=== PATIENT | female | born 1940 | race Caucasian/White ===

== ENCOUNTER → 2017-04-29 | Outpatient (CLI) | payer OTHER ==
[~2017-04-29] MED LIST: CALC500C70 PO; CHOL1TAB2 PO; CYAN10005 PO; DOCU-94 PO; MIRA1TAB3 PO; MIRT30TA2 PO; OXYC-57 PO; SENNTAB23 PO
== END | disposition home or self-care (01) ==
LOC: C.LABSPEC 17:09
PROVIDERS: ATTEND Urology
DX: N28.89 Other specified disorders of kidney and ureter (principal)

== ENCOUNTER 2017-05-13 05:02 | Inpatient (IN) | payer OTHER ==
[2017-05-06 12:51] VITALS: BMI 27.0
--- NOTE | 2017-05-06 13:28 | PAT Medication Instructions ---
Service Date May 06, 2017. Current Home Medication List Calcium/Vitamin D (Os-Hugo 500 Plus D), 1 TAB PO QAM Cholecalciferol (Vitamin D-3), 1 TAB PO QAM Cyanocobalamin (Vitamin B-12), 2,000 MCG PO QAM Mirabegron (Myrbetriq Er), 50 MG PO QPM Mirtazapine Soltab (Remeron Soltab), 30 MG PO QPM Oxycodone/Acetaminophen 5MG/325MG (Percocet 5MG/325MG), 1 TABLET PO Q4H PRN for Pain Sennosides-Docusate Sodium (Stool Softener), 1 TAB PO HS Medication Instructions For Your Scheduled Surgery - Hold the following medications the morning of surgery: Cholecalciferol (Vitamin D-3), 1 TAB PO QAM Cyanocobalamin (Vitamin B-12), 2,000 MCG PO QAM Calcium/Vitamin D (Os-Hugo 500 Plus D), 1 TAB PO QAM - Take the following medications the morning of surgery with a sip of water: Oxycodone/Acetaminophen 5MG/325MG (Percocet 5MG/325MG), 1 TABLET PO Q4H PRN for Pain (okay to take up to 4 hours prior to surgery if needed) - Take the following medications as scheduled the night before surgery: Sennosides-Docusate Sodium (Stool Softener), 1 TAB PO HS Mirabegron (Myrbetriq Er), 50 MG PO QPM Mirtazapine Soltab (Remeron Soltab), 30 MG PO QPM Oxycodone/Acetaminophen 5MG/325MG (Percocet 5MG/325MG), 1 TABLET PO Q4H PRN for Pain (if needed) If you have any questions please call us at [phone] or [phone] or [phone]
--- NOTE | 2017-05-06 13:55 | DIAGNOSTIC IMAGING REPORT ---
CHEST PREADMISSION(PA/LAT) CLINICAL HISTORY: Preoperative chest COMPARISON STUDY: No previous studies for comparison. FINDINGS: The heart is mildly enlarged. There is no failure. There is no lobar consolidation. Linear opacities at the left lung base are likely atelectatic. There are multiple old vertebral body compression deformities.[ IMPRESSION: Mild cardiomegaly. Left basilar atelectasis/scarring. No acute findings. Electronically signed by: Torey Tanner M.D. 05/06/2017 1:54 PM Dictated Date/Time: 05/06/2017 1:53 PM
[2017-05-06 14:49] LABS: BASO % 0.2 %; BASO ABS # 0.01 K/uL (0-0.2); EOS % 1.3 %; HEMATOCRIT 32.6 % (37-47); IG% 0.2 %; LYMPH % 22.5 %; LYMPH ABS # 1.22 K/uL (1.2-3.4); MEAN CELL VOLUME 78.6 fL (80-100); MEAN CORPUSCULAR HEMOGLOBIN 23.4 pg (25-34); MEAN CORPUSCULAR HGB CONC 29.8 g/dl (32-36); MEAN PLATELET VOLUME 9.5 fL (7.4-10.4); MONO % 9.4 %; NEUT % 66.4 %; PLATELET COUNT 508 K/uL (130-400); RED BLOOD COUNT 4.15 M/uL (4.2-5.4); WHITE BLOOD COUNT 5.43 K/uL (4.8-10.8)
[2017-05-06 15:16] LABS: ANISOCYTOSIS PRESENT; COMPLETE YES
[2017-05-06 15:54] LABS: BUN/CREATININE RATIO 22.9 (10-20); CALCIUM 8.4 mg/dl (8.5-10.1); CREATININE 0.55 mg/dl (0.60-1.20); POTASSIUM 4.3 mmol/L (3.5-5.1)
[2017-05-06 15:57] LABS: ALB/GLOB RATIO 0.5 (0.9-2)
[~2017-05-13] VITALS: Ht 152.4 cm; Wt 64.2 kg
[2017-05-13] VITALS (8 sets, daily range): BP systolic 99–168; BP diastolic 60–84; PULSE 72–94; TEMP 36.3–36.5; O2SAT 92–98; Ht 152.4 cm; Wt 64.2 kg
[~2017-05-13 05:02] MED LIST changes: -DOCU-94 PO
[2017-05-13] MEDS ORDERED: LACTATED RINGER'S 1000ML 1,000 ML IV SCH (06:00)
[2017-05-13] MEDS ORDERED: CEFAZOLIN 2000 MG/60 ML D5W IV SCH (06:00)
[2017-05-13] MEDS ORDERED: ONDANSETRON INJ 2 MG/ML 2 ML VIAL IV PRN ×2 (06:15→10:00)
[2017-05-13] MEDS ORDERED: PROMETHAZINE HCL INJ 12.5 MG in SODIUM CHLORIDE 0.9% 50ML 50 ML IV PRN (06:15)
[2017-05-13] MEDS ORDERED: ATROPINE SULFATE 0.1 MG/ML 5ML SYR IV PRN (06:15)
[2017-05-13] MEDS ORDERED: HYDROmorphone INJ 1 MG/ML SYR IV PRN ×3 (06:15→11:00)
[2017-05-13] MEDS ORDERED: FENTANYL CITRATE INJ 50 MCG/1 ML 2 ML VIAL IV PRN (06:15)
[2017-05-13] MEDS ORDERED: EpHEDrine SULFATE INJ 50 MG/ML AMP IV PRN (06:15)
[2017-05-13] MEDS ORDERED: FENTANYL CITRATE INJ 50 MCG/1 ML 2 ML VIAL ONE ×2 (06:59→10:19)
[2017-05-13] MEDS ORDERED: MIDAZOLAM HCL 1 MG/ML 2ML VIAL ONE (06:59)
[2017-05-13] MEDS ORDERED: BUPIVACAINE 0.5 % 5 MG/1 ML MPF 30ML VIAL ONE (07:02)
--- NOTE | 2017-05-13 07:19 | History & Physical Bridge Note ---
H&P Re-Evaluation Bridge Note: I have examined the patient, reviewed the History & Physical and in the interval since the performance of the History & Physical I have noted the following changes of clinical significance: No changes noted
[2017-05-13] MEDS ORDERED: NEOSTIGMINE METHYLSULFATE 5 MG/5 ML SYR ONE (08:37)
[2017-05-13] MEDS ORDERED: LARYING-O-JET KIT (LTA) ONE ×2 (08:37)
[2017-05-13] MEDS ORDERED: GLYCOPYRROLATE INJ 0.2 MG/ML VIAL ONE (08:37)
[2017-05-13] MEDS ORDERED: PROPOFOL IV EMULSION 10 MG/ML 20 ML VIAL IV ONE (08:37)
[2017-05-13] MEDS ORDERED: ONDANSETRON INJ 2 MG/ML 2 ML VIAL ONE ×2 (08:37→12:06)
[2017-05-13] MEDS ORDERED: ROCURONIUM BROMIDE 10 MG/ML 5 ML VIAL ONE (08:37)
[2017-05-13] MEDS ORDERED: DEXAMETHASONE SOD INJ 4 MG/ML VIAL ONE (08:37)
[2017-05-13] MEDS ORDERED: LIDOCAINE HCL 2% 2 ML VIAL (20MG/ML) ONE (08:37)
[2017-05-13] MEDS ORDERED: PHENYLEPHRINE 100MCG/ML 5ML SYR ONE (08:37)
[2017-05-13] MEDS ORDERED: EpHEDrine SULFATE 50MG/5ML SYR ONE (08:37)
[2017-05-13] MEDS ORDERED: TISSEEL FIBRIN SEALANT 10ML TOP ONE (09:38)
[2017-05-13] MEDS ORDERED: BACITRACIN OINT 15 GM TUBE ONE (09:53)
[2017-05-13] MEDS ORDERED: HYDROmorphone INJ 1 MG/ML SYR ONE ×2 (10:18→10:57)
--- NOTE | 2017-05-13 10:36 | [facility] Post Operative Brief Note ---
Immediate Operative Summary Operative Date May 13, 2017. Pre-Operative Diagnosis Right Renal Mass Post-Operative Diagnosis Same as preoperative Procedure(s) Performed Right Hand Assisted Laparoscopic Nephrectomy Surgeon Dr. Viktor Kingston Electroplating Technician Surgeon(s) NEGRO Christopher Estimated Blood Loss 50 ML Findings Excellent hemostasis, normal anatomy, copious intraabdominal adhesions intraabdominally and to liver Specimens A.) Right kidney and tumor Drains Zargaoza to gravity Anesthesia GAET + local Complication(s) None Disposition Recovery Room / PACU
[2017-05-13 10:38] LABS: HEMATOCRIT 32.6 % (37-47); MEAN CELL VOLUME 81.1 fL (80-100); MEAN CORPUSCULAR HEMOGLOBIN 24.4 pg (25-34); MEAN PLATELET VOLUME 9.3 fL (7.4-10.4); PLATELET COUNT 477 K/uL (130-400); RED BLOOD COUNT 4.02 M/uL (4.2-5.4); WHITE BLOOD COUNT 15.15 K/uL (4.8-10.8)
[2017-05-13] MEDS ORDERED: HYDROmorphone HCL 0.5MG/ML 50 ML CASSETTE ONE (10:38)
[2017-05-13] MEDS ORDERED: NALOXONE HCL 0.4 MG/1 ML VIAL/CARP IV PRN (10:45)
[2017-05-13 10:56] LABS: CALCIUM 8.2 mg/dl (8.5-10.1); CREATININE 0.62 mg/dl (0.60-1.20); POTASSIUM 4.4 mmol/L (3.5-5.1)
[2017-05-13 11:16] LABS: MEAN CORPUSCULAR HGB CONC 30.1 g/dl (32-36)
--- NOTE | 2017-05-13 11:18 | Anesthesiology Progress Note ---
Anesthesia Post Op Note Date & Time May 13, 2017 at 11:17 Vital Signs Pain Intensity: 5 Vital Signs Past 12 Hours Date Time Temp Pulse Resp B/P (MAP) Pulse Ox O2 Delivery O2 Flow Rate FiO2 05/13/17 11:05 77 13 162/81 96 Nasal Cannula 2 05/13/17 10:55 76 12 171/83 98 Nasal Cannula 2 05/13/17 10:45 78 10 165/89 98 Nasal Cannula 2 05/13/17 10:35 78 9 158/85 99 Mask 10 05/13/17 10:25 78 13 165/91 100 Mask 10 05/13/17 10:15 83 21 133/104 100 Mask 10 05/13/17 10:06 36.2 89 14 157/94 99 Mask 10 05/13/17 05:45 36.5 72 16 168/84 95 Room Air Notes Mental Status: alert / awake / arousable, participated in evaluation Pt Amnestic to Procedure: Yes Nausea / Vomiting: adequately controlled Pain: adequately controlled Airway Patency, RR, SpO2: stable & adequate BP & HR: stable & adequate Hydration State: stable & adequate Anesthetic Complications: no major complications apparent
[2017-05-13] MEDS ORDERED: SODIUM CHLORIDE 0.9% 1000ML 1,000 ML IV SCH (13:00)
[2017-05-13] MEDS: LACTATED RINGER'S 1000ML 1,000 ML IV SCH ×2 (13:26→21:37)
[2017-05-13] MEDS: HYDROmorphone HCL 0.5MG/ML 50 ML CASSETTE IV PRN ×2 (15:00→23:00)
--- NOTE | 2017-05-13 15:50 | [facility] Operative Report ---
Operative Report Operative Date May 13, 2017. Pre-Operative Diagnosis Right 7 cm Renal Mass Post-Operative Diagnosis Same as preoperative Procedure(s) Performed Right Hand-Assisted Laparoscopic Radical Nephrectomy Surgeon Dr. 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 CT scan of the abdomen and pelvis with a renal mass protocol confirms suspicious mass lesion. Due to the size and location of her tumor she is felt to be a poor candidate for nephron sparing surgery. Addition her left kidney is within normal limits. She is therefore here today for a radical left-sided hand-assisted laparoscopic nephrectomy to manage her disease. Please see H&P for further details. Consent reviewed preoperatively and intravenous Ancef provided for antibiotic coverage without reaction or difficulties. SCDs used for DVT prophylaxis. Description of Procedure Patient was properly identified and brought to the operative suite after defecation for appropriate consent of the chart. General anesthesia with endotracheal intubation was initiated and patient was prepped and draped in the standard fashion for this procedure that is and a gentle right side up flank position with generously padded pressure points. Axillary roll was placed and flexion was placed on the table. Arm was placed within an armboard in a neutral position. All port sites were anesthetized with local prior to incision. A Briones incision was made in the right lower quadrant and brought down through the subcutaneous tissues to the fascia of the external oblique. This was divided and an apparent epigastric artery was noted and spared throughout the case. Peritoneum was sharply entered using Metzenbaum scissors without evidence of injury to the bowel. The incision was expanded over the surgeon's finger and hand port was placed. Abdomen was insufflated to 15 mmHg and inspected. No injury to the intra-abdominal organs on access to the abdomen was appreciated. 2 12 mm ports were placed in the mid clavicular line directly onto the surgeon's hand to avoid any injury to intra-abdominal structures. Generous intra-abdominal adhesions likely due to the patient's prior gastric bypass surgery were appreciated. These also were noted to involve the liver and significantly reduce its mobility. Scissors were used to lyse adhesions between the omentum, bowel and abdominal wall. The white line of Toldt was incised on the right-hand side and the colon was dropped immediately. Psoas muscle and ureter were easily identified and used for lateral traction on the kidney and cephalad dissection to the level of the hilum. Cautious dissection around the liver to free it and allow for mobility to access the renal hilum was required. Numerous bowel adhesions at the level of the liver and prior cholecystectomy were also lysed. Great care was taken to avoid any heat injury to the bowel which was noted to be intact and normal in appearance throughout the entire case. After sufficient mobilization to allow for exposure of the hilum was performed the hilum was skeletonized to allow for identification of its structures. A compressed renal vein with no evidence of tumor thrombus was noted. This was due to close location and overlying tumor as appreciated on prior CT scan. This is able to be circumscribed and the renal hilum was taken using 2 vascular staple loads. Excellent hemostasis was appreciated at this level. Wide dissection was carried out superior to the upper pole of the kidney. Harmonic Scalpel was used as necessary for dissection and hemostasis. After the kidney was completely freed the ureter and gonadal vessels were taken using a separate staple load and specimen was delivered from the abdomen. This was handed off the table for permanent pathologic analysis. Attention was turned to the retroperitoneum where at low pressure excellent hemostasis was appreciated. Tisseel tissue sealant was applied to the level of the hilum, renal bed and the planes of dissection. Liver and bowel were returned to their normal anatomic position. Flexion was removed from the table and ports were removed. Excess carbon monoxide gas was removed from the abdomen as possible. 0 Vicryl suture on a UR 6 was used to close the 12 mm port sites. Hand port was closed in 2 layers using #1 Vicryl suture on the deep tissues of the abdominal wall and a # 1 Ethibond suture on the fascia of the external oblique and musculature. Care was taken to avoid entrapment of the patient's apparent epigastric vessel over the course of closure. Wounds were generously irrigated. 3-0 Vicryl was used in the subcutaneous tissues of the hand incision and 4-0 Monocryl at all skin incisions with Dermabond. Anesthesia was reversed and patient was transferred to the recovery room in stable condition. Zaragoza been placed at the outset of the case. Patient will be admitted to the floor for standard postoperative management. I attest to the content of the Intraoperative Record and any orders documented therein. Any exceptions are noted below.
[2017-05-13] MEDS: LOCK-OUT PCA TITRATION SCH ×2 (16:00→23:24)
--- NOTE | 2017-05-13 16:13 | [facility] Post Operative Brief Note ---
Post-OP Note Date of Service May 13, 2017. Post-Op Note PM rounds Patient resting comfortably in room with TIMBER SURVEYOR, somnolent but responsive. No OOB yet. She is ruslan sips of clears, no nausea or emesis, comfortable Labs noted - Cr and Hb stable, I expect some adjustment tomorrow NAD Good respiratory excursion S1S2 Soft, ND, min tenderness, inc c/d/i A/P 77 yo female POD#0 s/p R HALN Doing well. Clears and TIMBER SURVEYOR for now OOBTC tonight
[2017-05-13] MEDS ORDERED: ACETAMINOPHEN IV 650 MG in EMPTY BAG 0 ML IV PRN (16:15)
[2017-05-13] MEDS: CEFAZOLIN IV 2,000 MG in DEXTROSE 5% 50ML 50 ML IV SCH ×2 (16:23→23:22)
[2017-05-13] MEDS: HEPARIN SOD 5000 UNIT/0.5 ML CARP SQ SCH (18:50)
[2017-05-13] MEDS: DOCUSATE SODIUM 100 MG CAP PO SCH (20:38)
[2017-05-13] MEDS: MIRABEGRON ER 25 MG TAB PO SCH (20:39)
[2017-05-13] MEDS: BACITRACIN OINT 15 GM TUBE EXT SCH (20:40)
[2017-05-13] MEDS ORDERED: ACETAMINOPHEN 500 MG TAB PO SCH (22:00)
[2017-05-14] VITALS (10 sets, daily range): BP systolic 96–108; BP diastolic 60–71; PULSE 74–92; TEMP 36.5–36.8; O2SAT 82–99
[2017-05-14 06:00] LABS: BASO % 0.1 %; BASO ABS # 0.01 K/uL (0-0.2); EOS % 0.1 %; HEMATOCRIT 29.5 % (37-47); IG% 0.3 %; LYMPH % 9.6 %; LYMPH ABS # 0.99 K/uL (1.2-3.4); MEAN CELL VOLUME 82.9 fL (80-100); MEAN CORPUSCULAR HEMOGLOBIN 24.2 pg (25-34); MEAN CORPUSCULAR HGB CONC 29.2 g/dl (32-36); MEAN PLATELET VOLUME 9.5 fL (7.4-10.4); MONO % 8.1 %; NEUT % 81.8 %; PLATELET COUNT 476 K/uL (130-400); RED BLOOD COUNT 3.56 M/uL (4.2-5.4); WHITE BLOOD COUNT 10.27 K/uL (4.8-10.8)
[2017-05-14 06:24] LABS: ANISOCYTOSIS PRESENT; COMPLETE YES
[2017-05-14] MEDS: LACTATED RINGER'S 1000ML 1,000 ML IV SCH (06:25)
[2017-05-14 06:32] LABS: BUN/CREATININE RATIO 11.9 (10-20); CALCIUM 7.7 mg/dl (8.5-10.1); CREATININE 1.1 mg/dl (0.60-1.20); POTASSIUM 4.8 mmol/L (3.5-5.1)
--- NOTE | 2017-05-14 08:03 | Progress Note ---
Subjective Date of Service: May 14, 2017. Subjective Pt evaluation today including: conversation w/ patient, chart review, lab review Voiding: palma catheter in place (patent, draining clear, yellow urine) 77 yo female s/p right HALN. Pt reports some incisional pain this morning requiring Dilaudid SUPERINTENDENT WATER AND SEWER SYSTEMS. Denies n/v. Tolerating clear liquids. She reports she is hungry this AM. + flatus. Denies BM. She has not yet been ambulatory. Reports she uses a walker and cane at home. H&H of 8.6 and 29.5 this AM. Cr is stable at 1.10. Urine output of 125ml overnight. Review of Systems Constitutional: No fever, No chills Respiratory: No shortness of breath Cardiac: No chest pain Abdomen: + see HPI, + pain (incisional pain ), No nausea, No vomiting Female : No hematuria Heme: No abnormal bleeding/bruising Objective Vital Signs Date Time Temp Pulse Resp B/P (MAP) Pulse Ox O2 Delivery O2 Flow Rate FiO2 05/14/17 03:15 94 Nasal Cannula 2.0 05/14/17 03:07 82 Room Air 05/14/17 03:05 36.7 83 16 98/60 (73) 95 Nasal Cannula 2.0 05/13/17 23:15 Nasal Cannula 2.0 05/13/17 23:15 36.4 90 16 99/60 (73) 92 Nasal Cannula 2.0 05/13/17 19:00 36.4 94 16 103/66 (78) 95 Nasal Cannula 2.0 05/13/17 15:40 Nasal Cannula 2.0 05/13/17 15:20 36.3 89 16 100/65 (77) 95 Nasal Cannula 2.0 05/13/17 14:29 36.3 89 16 109/70 (83) 97 Nasal Cannula 2.0 05/13/17 13:31 36.3 87 16 109/66 (80) 97 Nasal Cannula 2.0 05/13/17 12:28 84 16 127/83 (98) 98 2.0 05/13/17 11:35 97 Nasal Cannula 2.0 05/13/17 11:35 97 Nasal Cannula 2.0 05/13/17 11:35 36.4 78 16 161/84 (109) 97 Nasal Cannula 2.0 05/13/17 11:25 79 16 150/79 100 Nasal Cannula 4 05/13/17 11:15 36.3 77 18 167/82 97 Nasal Cannula 4 05/13/17 11:05 77 13 162/81 96 Nasal Cannula 2 05/13/17 10:55 76 12 171/83 98 Nasal Cannula 2 05/13/17 10:45 78 10 165/89 98 Nasal Cannula 2 05/13/17 10:35 78 9 158/85 99 Mask 10 05/13/17 10:25 78 13 165/91 100 Mask 10 05/13/17 10:15 83 21 133/104 100 Mask 10 05/13/17 10:06 36.2 89 14 157/94 99 Mask 10 Physical Exam General Appearance: no apparent distress Eyes: normal inspection ENT: hearing grossly normal Neck: no JVD Respiratory/Chest: no respiratory distress, no accessory muscle use Cardiovascular: no JVD Abdomen: soft, + pertinent finding (abdominal incisions c/d/i) Extremities: normal inspection Neurologic/Psychiatric: alert, normal mood/affect, oriented x 3 Skin: normal color Laboratory Results Last 24 Hours Test 05/13/17 10:20 05/13/17 13:56 05/14/17 05:30 White Blood Count 15.15 K/uL 10.27 K/uL Red Blood Count 4.02 M/uL 3.56 M/uL Hemoglobin 9.8 g/dL 8.6 g/dL Hematocrit 32.6 % 29.5 % Mean Corpuscular Volume 81.1 fL 82.9 fL Mean Corpuscular Hemoglobin 24.4 pg 24.2 pg Mean Corpuscular Hemoglobin Concent 30.1 g/dl 29.2 g/dl RDW Standard Deviation 60.1 fL 61.3 fL RDW Coefficient of Variation 19.9 % 19.9 % Platelet Count 477 K/uL 476 K/uL Mean Platelet Volume 9.3 fL 9.5 fL Sodium Level 140 mmol/L 135 mmol/L Potassium Level 4.4 mmol/L 4.8 mmol/L Chloride Level 105 mmol/L 100 mmol/L Carbon Dioxide Level 31 mmol/L 32 mmol/L Anion Gap 4.0 mmol/L 3.0 mmol/L Blood Urea Nitrogen 9 mg/dl 13 mg/dl Creatinine 0.62 mg/dl 1.10 mg/dl Est Creatinine Clear Calc Drug Dose 63.6 ml/min 35.8 ml/min Estimated GFR () 100.8 56.1 Estimated GFR (Non- 87.0 48.4 BUN/Creatinine Ratio 15.0 11.9 Random Glucose 110 mg/dl 80 mg/dl Calcium Level 8.2 mg/dl 7.7 mg/dl Prothrombin Time 11.0 SECONDS Prothromb Time International Ratio 1.0 Neutrophils (%) (Auto) 81.8 % Lymphocytes (%) (Auto) 9.6 % Monocytes (%) (Auto) 8.1 % Eosinophils (%) (Auto) 0.1 % Basophils (%) (Auto) 0.1 % Neutrophils # (Auto) 8.40 K/uL Lymphocytes # (Auto) 0.99 K/uL Monocytes # (Auto) 0.83 K/uL Eosinophils # (Auto) 0.01 K/uL Basophils # (Auto) 0.01 K/uL Immature Granulocyte % (Auto) 0.3 % Immature Granulocyte # (Auto) 0.03 K/uL Anisocytosis PRESENT Assessment and Plan POD #1 s/p right HALN. AFVSS. Pt doing well post-op. TOV this morning. Will advance to a mechanical soft diet for breakfast. D/c Diluadid SUPERINTENDENT WATER AND SEWER SYSTEMS after lunch. Transition to oral Percocet. IV Dilaudid for breakthrough pain PRN. Will hep lock IVF after lunch if tolerating PO. PT/OT consult today. Hopeful for d/c home tomorrow if doing well. Discharge planning: home
[2017-05-14] MEDS: CEFAZOLIN IV 2,000 MG in DEXTROSE 5% 50ML 50 ML IV SCH (08:13)
[2017-05-14] MEDS: CHOLECALCIFEROL 1000 INTER.UNIT TAB PO SCH (09:13)
[2017-05-14] MEDS: DOCUSATE SODIUM 100 MG CAP PO SCH ×2 (09:13→20:45)
[2017-05-14] MEDS: BACITRACIN OINT 15 GM TUBE EXT SCH ×2 (09:13→20:45)
[2017-05-14] MEDS: CALCIUM 600MG + VIT D 400 IU TAB PO SCH (09:14)
[2017-05-14] MEDS: HEPARIN SOD 5000 UNIT/0.5 ML CARP SQ SCH ×2 (09:17→20:50)
[2017-05-14] MEDS: CYANOCOBALAMIN 500 MCG TAB (VIT B-12) PO SCH (09:17)
--- NOTE | 2017-05-14 10:51 | Anesthesiology Progress Note ---
Anesthesia Post Op Note Date & Time May 14, 2017 at 10:50 Vital Signs Pain Intensity: 5.0 Vital Signs Past 12 Hours Date Time Temp Pulse Resp B/P (MAP) Pulse Ox O2 Delivery O2 Flow Rate FiO2 05/14/17 09:37 93 Nasal Cannula 2.0 05/14/17 07:59 36.7 82 14 100/60 (73) 93 Nasal Cannula 2.0 05/14/17 07:30 Nasal Cannula 2.0 05/14/17 03:15 94 Nasal Cannula 2.0 05/14/17 03:07 82 Room Air 05/14/17 03:05 36.7 83 16 98/60 (73) 95 Nasal Cannula 2.0 05/13/17 23:15 Nasal Cannula 2.0 05/13/17 23:15 36.4 90 16 99/60 (73) 92 Nasal Cannula 2.0 Notes Mental Status: alert / awake / arousable, participated in evaluation Pt Amnestic to Procedure: Yes Nausea / Vomiting: adequately controlled Pain: adequately controlled Airway Patency, RR, SpO2: stable & adequate BP & HR: stable & adequate Hydration State: stable & adequate Anesthetic Complications: no major complications apparent
--- NOTE | 2017-05-14 12:47 | Clinical Documentation Query ---
CLINICAL DOCUMENTATION QUERY Dr. CHARLES, In your clinical opinion is this patient being managed for: ( X ) Acute kidney injury, as expected, in the setting of R nephrectomy ( ) Other explanation of clinical findings (Please Explain) ( ) Unable to determine (Please Define) ( ) Need to Discuss ( ) Not Agree Acute Kidney Injury is defined as any of the following: * Increase in SCr by (>/=) 0.3 mg/dl within 48 hours; or * Increase in SCr to (>/=)1.5 times baseline, which is known or presumed to have occurred within the prior 7 days; or * Urine volume <0.5 ml/kg/h for 6 hours. The medical record reflects the following clinical findings, treatment, and risk factors. Clinical Indicators: 77 yo female presenting with R renal mass, suspicious for RCC. Baseline Cr 0.55 which has trended up to Cr 1.10. Treatment: IV fluids, serial PRP's, I/O Risk Factors: R nephrectomy Please clarify and document your clinical opinion in the progress notes and discharge summary. Terms such as "probable", "suspected", "likely", "questionable", "possible", or "still to be ruled out" are acceptable. IF IN AGREEMENT, YOU MUST DOCUMENT ABOVE DIAGNOSTIC STATEMENT IN DAILY PROGRESS NOTES AND DISCHARGE SUMMARY. This document is not part of the patient's record. Thank You, Yesi Mancini, RN [phone]
--- NOTE | 2017-05-14 12:50 | Clinical Documentation Query ---
CLINICAL DOCUMENTATION QUERY Ms.. ARIZMENDI, In your clinical opinion is this patient being managed for: ( X ) Acute kidney injury, as expected, in the setting of R nephrectomy ( ) Other explanation of clinical findings (Please Explain) ( ) Unable to determine (Please Define) ( ) Need to Discuss ( ) Not Agree The medical record reflects the following clinical findings, treatment, and risk factors. Clinical Indicators: 77 yo female presenting with R renal mass, suspicious for RCC. Baseline Cr 0.55 which has trended up to Cr 1.10. Treatment: IV fluids, serial PRP's, I/O Risk Factors: R nephrectomy Acute Kidney Injury is defined as any of the following: o Increase in SCr by (>/=) 0.3 mg/dl within 48 hours; or o Increase in SCr to (>/=)1.5 times baseline, which is known or presumed to have occurred within the prior 7 days; or o Urine volume <0.5 ml/kg/h for 6 hours. Please clarify and document your clinical opinion in the progress notes and discharge summary. Terms such as "probable", "suspected", "likely", "questionable", "possible", or "still to be ruled out" are acceptable. IF IN AGREEMENT, YOU MUST DOCUMENT ABOVE DIAGNOSTIC STATEMENT IN DAILY PROGRESS NOTES AND DISCHARGE SUMMARY. This document is not part of the patient's record. Thank You, Yesi Mancini, RN [phone]
[2017-05-14] MEDS ORDERED: HYDROmorphone INJ 1 MG/ML SYR IV PRN (13:00)
[2017-05-14] MEDS: OXYCODONE/ACETAMINOPHEN 7.5-325 TAB PO PRN ×4 (13:58→23:15)
[2017-05-14] MEDS ORDERED: NURSING VERBAL MED ORDER ONE (15:15)
[2017-05-14] MEDS: MIRABEGRON ER 25 MG TAB PO SCH (20:45)
[2017-05-15] MEDS: OXYCODONE/ACETAMINOPHEN 7.5-325 TAB PO PRN ×3 (02:50→11:59)
[2017-05-15 06:59] LABS: BASO % 0.1 %; BASO ABS # 0.01 K/uL (0-0.2); EOS % 0.4 %; IG% 0.1 %; LYMPH % 9.9 %; LYMPH ABS # 0.74 K/uL (1.2-3.4); MEAN CELL VOLUME 81.6 fL (80-100); MEAN CORPUSCULAR HEMOGLOBIN 23.9 pg (25-34); MEAN CORPUSCULAR HGB CONC 29.3 g/dl (32-36); MEAN PLATELET VOLUME 9.5 fL (7.4-10.4); MONO % 8.3 %; NEUT % 81.2 %; PLATELET COUNT 379 K/uL (130-400); RED BLOOD COUNT 3.31 M/uL (4.2-5.4); WHITE BLOOD COUNT 7.44 K/uL (4.8-10.8)
[2017-05-15 07:32] LABS: ANISOCYTOSIS PRESENT; COMPLETE YES; HYPOCHROMIA PRESENT
[2017-05-15 07:33] LABS: BUN/CREATININE RATIO 13.4 (10-20); CALCIUM 8.1 mg/dl (8.5-10.1); CREATININE 1.1 mg/dl (0.60-1.20); POTASSIUM 4.6 mmol/L (3.5-5.1)
[2017-05-15] MEDS ORDERED: DOCU-94 PO (07:33)
--- NOTE | 2017-05-15 07:37 | Discharge Instructions ---
Discharge Instructions Date of Service May 15, 2017. Admission Reason for Admission: Right Renal Mass Discharge Discharge Diagnosis / Problem: Right renal mass Discharge Goals Goal(s): Decrease discomfort, Improve disease control, Therapeutic intervention Activity Recommendations Activity Limitations: per Instructions/Follow-up section Shower/Bathe: tomorrow 1. Do not lift >15lbs x 6 weeks. 2. No heavy exercise x 6 weeks. You may engage in light activity such as walking and stairs as tolerated. 3. Do not drive x [address] while taking narcotics. 4. Follow-up as scheduled. Please call our office at [phone] if you need to reschedule for any reason. 5. You may take the Percocet you have been previously prescribed for pain. . Current Hospital Diet Hospital Diet(s): Regular Diet Discharge Diet Recommended Diet: Regular Diet Procedures Procedures Performed: Right Hand-Assisted Laparoscopic Radical Nephrectomy Pending Studies Studies pending at discharge: yes (renal mass) List of pending studies: right renal mass Medical Emergencies . Who to Call and When: Medical Emergencies: If at any time you feel your situation is an emergency, please call 911 immediately. . Non-Emergent Contact Non-Emergency issues call your: Urologist Call Non-Emergent contact if: temperature is above 101.5, your pain is not controlled, your pain is worsening, your pain is unusual for you, your pain is concerning you, you have any medication questions . . "Provider Documentation" section prepared by Rani Patel. . VTE Core Measure Inpt VTE Proph given/why not?: Unfractionated heparin SQ, SCD's [place] Drug Monitoring Program Search Results: patient reviewed within database, see additional documentation Drug Monitoring Findings: Pt receiving 90 tablets of oxycodone-acetaminophen 10-325mg per month. Nothing further prescribed at this time.
--- NOTE | 2017-05-15 07:39 | Progress Note ---
Subjective Date of Service: May 15, 2017. Subjective Pt evaluation today including: conversation w/ patient, chart review, lab review Voiding: no voiding problems 77 yo female s/p right HALN. Pt reports some incisional pain this morning, but otherwise feels well and wishes to be discharged home. She reports some n/v yesterday after eating a lot of chicken and gravy which she thought was delicious. No n/v since, and tolerating mechanical soft diet without issue. + flatus and small BM as well. She reports she is voiding well. Denies hematuria. She has ambulated to the hallway with her walker. H&H noted to be 7.9 and 27.0 this morning. Cr is pending. Urine output has improved. 425ml overnight. Review of Systems Constitutional: No fever, No chills Respiratory: No shortness of breath Cardiac: No chest pain Abdomen: + pain (incisional), No nausea, No vomiting Female : No dysuria, No hematuria Heme: No abnormal bleeding/bruising Objective Vital Signs Date Time Temp Pulse Resp B/P (MAP) Pulse Ox O2 Delivery O2 Flow Rate FiO2 05/14/17 23:55 Nasal Cannula 3.0 05/14/17 23:05 36.8 80 16 108/71 (83) 99 Nasal Cannula 3.0 05/14/17 16:15 97 Nasal Cannula 3.0 05/14/17 15:25 36.5 74 18 98/64 (75) 97 Nasal Cannula 3.0 05/14/17 13:24 95 Nasal Cannula 2.0 05/14/17 12:00 36.8 92 14 96/62 (73) 90 Nasal Cannula 2.0 05/14/17 09:37 93 Nasal Cannula 2.0 05/14/17 07:59 36.7 82 14 100/60 (73) 93 Nasal Cannula 2.0 05/14/17 07:30 Nasal Cannula 2.0 Physical Exam General Appearance: no apparent distress Eyes: normal inspection ENT: hearing grossly normal Neck: no JVD Respiratory/Chest: no respiratory distress, no accessory muscle use Cardiovascular: no JVD Abdomen: soft, + pertinent finding (abdominal incisions c/d/i) Extremities: normal inspection Neurologic/Psychiatric: alert, normal mood/affect, oriented x 3 Skin: normal color Laboratory Results Last 24 Hours Test 05/15/17 06:22 White Blood Count 7.44 K/uL Red Blood Count 3.31 M/uL Hemoglobin 7.9 g/dL Hematocrit 27.0 % Mean Corpuscular Volume 81.6 fL Mean Corpuscular Hemoglobin 23.9 pg Mean Corpuscular Hemoglobin Concent 29.3 g/dl Platelet Count 379 K/uL Mean Platelet Volume 9.5 fL Neutrophils (%) (Auto) 81.2 % Lymphocytes (%) (Auto) 9.9 % Monocytes (%) (Auto) 8.3 % Eosinophils (%) (Auto) 0.4 % Basophils (%) (Auto) 0.1 % Neutrophils # (Auto) 6.03 K/uL Lymphocytes # (Auto) 0.74 K/uL Monocytes # (Auto) 0.62 K/uL Eosinophils # (Auto) 0.03 K/uL Basophils # (Auto) 0.01 K/uL RDW Standard Deviation 59.8 fL RDW Coefficient of Variation 19.8 % Immature Granulocyte % (Auto) 0.1 % Immature Granulocyte # (Auto) 0.01 K/uL Assessment and Plan POD #2 s/p right HALN. AFVSS. Pt doing well post-op. Will d/c home after lunch if continuing to do well. Will d/c home with [facility]. She has Percocet 10-325mg at home that she can take for pain. Will f/u with Dr. Kingston post-op as scheduled. Discharge planning: home
[2017-05-15 07:43] VITALS: BP 120/68; PULSE 72; TEMP 36.5; O2SAT 100
[2017-05-15 07:51] VITALS: O2SAT 100
[2017-05-15] MEDS: CALCIUM 600MG + VIT D 400 IU TAB PO SCH (08:55)
[2017-05-15] MEDS: DOCUSATE SODIUM 100 MG CAP PO SCH (08:57)
[2017-05-15] MEDS: CYANOCOBALAMIN 500 MCG TAB (VIT B-12) PO SCH (08:57)
[2017-05-15] MEDS: CHOLECALCIFEROL 1000 INTER.UNIT TAB PO SCH (08:59)
[2017-05-15] MEDS: BACITRACIN OINT 15 GM TUBE EXT SCH (09:01)
[2017-05-15] MEDS: HEPARIN SOD 5000 UNIT/0.5 ML CARP SQ SCH (09:14)
--- NOTE | 2017-05-15 10:53 | Medical Consult ---
Consultation Date of Consultation: May 15, 2017. Attending Physician: Viktor Kingston MD, Urology Reason for Consultation: Hypoxia History of Present Illness Ms. Chamberlain is a 77 y/o female with PMHx of Malabsorption Syndrome S/P Gastric Bypass, Hypoalbuminemia, and B/L Lower Extremity Edema 2/2 Hypoalbuminemia who is S/P R Lap Nephrectomy on 05/[address] Hoang. Hospitalist consulted for low O2 sats on RA. She denies H/O pulmonary or cardiac conditions. Smoked when "cigarettes were $1 a pack" but hasn't since. She was never diagnosed with asthma or COPD and doesn't utilize inhalers. Denies H/O sleep apnea. Denies H/O PE/DVT. She reports that she has never had an PA or CHF. Does have lower extremity edema intermittently that she states was due to her hypoalbuminemia but has not caused her any problems. She states she is not having any SOB or RIVERA. She is having some incisional pain when not taking pain medications but no pleuritic CP. She reports an intermittent cough that is non- productive and more "just clearing my throat". She is not having worsening lower extremity edema or pain in the lower legs. Vitals are stable. In the room , patient on RA was 69% with the finger probe but mentating adequately and no distress. Placed forehead monitor that was reading in 83-89% range while sitting in bedside chair. Did discuss getting a CXR which patient initially declined but did agree to at least a portable. Will also place two-step. She has never required supplemental O2. She feels at her baseline. Past Medical/Surgical History 1. Malabsorption Syndrome S/P Gastric Bypass 2. Hypoalbuminemia with Lower Extremity Edema 3. Overactive Bladder 4. Osteoarthritis Family History Ovarian Cancer MOTHER, Social History Smoking Status: Former Smoker Alcohol Use: socially Drug Use: none Allergies Coded Allergies: Penicillins (Unverified Allergy, Mild, RASH, 05/13/17) Current Inpatient Medications Current Inpatient Medications Medications (Trade) Dose Ordered Sig/Canelo Route Start Time Stop Time Status Last Admin Dose Admin Docusate Sodium (coLACE CAP) 100 mg BID PO 05/13/17 21:00 06/12/17 20:59 05/15/17 08:57 100 MG Heparin Sodium (Porcine) (Heparin Sq 5000 Unit/0.5ml) 5,000 unit Q12 SQ 05/13/17 19:00 06/12/17 18:59 05/15/17 09:14 5,000 UNIT Ondansetron HCl (Zofran Inj) 4 mg Q6H PRN IV 05/13/17 10:00 06/12/17 09:59 05/14/17 18:34 4 MG Oxycodone/ Acetaminophen (Percocet 7.5-325MG Tab) Hold Tylenol if given Q4H PRN PO 05/13/17 10:00 05/27/17 09:59 Future hold 05/15/17 07:38 2 TAB Calcium/Vitamin D (Caltrate Plus Tab) 1 tab QAM PO 05/14/17 09:00 06/13/17 08:59 05/15/17 08:55 1 TAB Cholecalciferol (Vitamin D Tab) 1,000 inter.unit QAM PO 05/14/17 09:00 06/13/17 08:59 05/15/17 08:59 1,000 INTER.UNIT Cyanocobalamin (Vitamin B-12 Tab) 2,000 mcg QAM PO 05/14/17 09:00 06/13/17 08:59 05/15/17 08:57 2,000 MCG Mirabegron (Myrbetriq Er) 50 mg QPM PO 05/13/17 21:00 06/12/17 20:59 05/14/17 20:45 50 MG Miscellaneous Information (Order Awaiting Action) 1 ea QS N/A 05/13/17 16:00 06/12/17 15:59 Bacitracin (Bacitracin Oint) 1 appln BID EXT 05/13/17 21:00 06/12/17 20:59 05/15/17 09:01 1 APPLN Acetaminophen 650 mg/Empty Bag 65 ml @ 260 mls/hr Q6H PRN IV 05/13/17 16:15 06/12/17 16:14 Hydromorphone HCl (Dilaudid Inj) 1 mg Q2H PRN IV 05/14/17 13:00 05/28/17 12:59 Review of Systems Constitutional: No fever, No chills, No fatigue ENT: No nasal symptoms, No sore throat, No trouble swallowing Respiratory: + cough, No sputum, No wheezing, No dyspnea on exertion, No dyspnea at rest, No hemoptysis Cardiovascular: No chest pain, No palpitations Abdomen: No pain, No nausea, No vomiting Musculoskeletal: + joint pain (bilateral knee) Hematologic / Lymphatic: No abnormal bleeding/bruising, No clotting problems Integumentary: No rash, No itch Physical Exam Date Time Temp Pulse Resp B/P (MAP) Pulse Ox O2 Delivery O2 Flow Rate FiO2 05/15/17 07:51 100 Nasal Cannula 3.0 05/15/17 07:43 36.5 72 16 120/68 (85) 100 Nasal Cannula 3.0 05/15/17 07:30 Nasal Cannula 2.0 05/14/17 23:55 Nasal Cannula 3.0 05/14/17 23:05 36.8 80 16 108/71 (83) 99 Nasal Cannula 3.0 05/14/17 16:15 97 Nasal Cannula 3.0 05/14/17 15:25 36.5 74 18 98/64 (75) 97 Nasal Cannula 3.0 05/14/17 13:24 95 Nasal Cannula 2.0 05/14/17 12:00 36.8 92 14 96/62 (73) 90 Nasal Cannula 2.0 General Appearance: no apparent distress, + thin Head: normocephalic, atraumatic Eyes: sclerae normal ENT: hearing grossly normal Neck: supple, no JVD, trachea midline Respiratory/Chest: no respiratory distress, no accessory muscle use, + crackles (minimal crackles in R base) Cardiovascular: regular rate, rhythm, no gallop, + systolic murmur Abdomen/GI: normal bowel sounds, non tender, soft Extremities/Musculoskelatal: no calf tenderness, no pedal edema Neurologic/Psych: alert, oriented x 3 Skin: normal color, warm/dry Laboratory Results Last 24 Hours Test 05/15/17 06:22 White Blood Count 7.44 K/uL Red Blood Count 3.31 M/uL Hemoglobin 7.9 g/dL Hematocrit 27.0 % Mean Corpuscular Volume 81.6 fL Mean Corpuscular Hemoglobin 23.9 pg Mean Corpuscular Hemoglobin Concent 29.3 g/dl Platelet Count 379 K/uL Mean Platelet Volume 9.5 fL Neutrophils (%) (Auto) 81.2 % Lymphocytes (%) (Auto) 9.9 % Monocytes (%) (Auto) 8.3 % Eosinophils (%) (Auto) 0.4 % Basophils (%) (Auto) 0.1 % Neutrophils # (Auto) 6.03 K/uL Lymphocytes # (Auto) 0.74 K/uL Monocytes # (Auto) 0.62 K/uL Eosinophils # (Auto) 0.03 K/uL Basophils # (Auto) 0.01 K/uL RDW Standard Deviation 59.8 fL RDW Coefficient of Variation 19.8 % Immature Granulocyte % (Auto) 0.1 % Immature Granulocyte # (Auto) 0.01 K/uL Hypochromasia PRESENT Anisocytosis PRESENT Sodium Level 135 mmol/L Potassium Level 4.6 mmol/L Chloride Level 103 mmol/L Carbon Dioxide Level 32 mmol/L Anion Gap 0.0 mmol/L Blood Urea Nitrogen 15 mg/dl Creatinine 1.10 mg/dl Est Creatinine Clear Calc Drug Dose 35.8 ml/min Estimated GFR () 56.1 Estimated GFR (Non- 48.4 BUN/Creatinine Ratio 13.4 Random Glucose 82 mg/dl Calcium Level 8.1 mg/dl Assessment & Plan Ms. Chamberlain is a 77 y/o female with PMHx of Malabsorption Syndrome S/P Gastric Bypass, Hypoalbuminemia, and B/L Lower Extremity Edema 2/2 Hypoalbuminemia who is S/P R Lap Nephrectomy on 05/[address] Hoang. Hospitalist consulted for low O2 sats on RA. Acute Hypoxic Respiratory Failure: Possibly Atelectasis - Patient initially did not want to do further imaging testing but is in agreement to do portable CXR - Given recent surgery and pain medications she is likely not taking deep breaths and will favor likely atelectasis -- Vitals stable - no tachycardia, no pleuritic CP, no SOB/RIVERA, and on Heparin SC - clinically unlikely PE -- No documented H/O CHF, no reports of cardiac issue per patient - no echocardiogram in the system to evaluate - minimal crackles in R base - doesn't look fluid overloaded -- No fever/chills, productive cough, or leukocytosis to support pneumonia - CXR - await to evaluate for effusion or consolidation - 2 step evaluation
--- NOTE | 2017-05-15 10:54 | DIAGNOSTIC IMAGING REPORT ---
CHEST ONE VIEW PORTABLE CLINICAL HISTORY: Hypoxia COMPARISON STUDY: Chest radiograph May 06, 2017. FINDINGS: Lung volumes are diminished. There is old deformity of the proximal left humerus. No pneumothorax or pleural effusion is identified. There is no evidence of pulmonary edema. Linear right basilar opacity suggests atelectasis. Left basilar opacity is noted. Cardiac size is stable.. There is equivocal pneumoperitoneum. There is gas within the right chest wall. This is postsurgical. IMPRESSION: 1. Diminished lung volumes with left basilar opacity which could reflect atelectasis or consolidation. 2. Linear right basilar opacity consistent with atelectasis. 3. No evidence of pulmonary edema. 4. Equivocal lucency under the right hemidiaphragm which is likely artifactual. However, extraluminal gas could appear similar but not unexpected in the early postoperative setting. Electronically signed by: Jose Awad M.D. 05/15/2017 10:53 AM Dictated Date/Time: 05/15/2017 10:46 AM
[2017-05-15 13:21] VITALS: BP 120/68; PULSE 72; TEMP 36.5; O2SAT 100
--- NOTE | 2017-05-29 17:02 | Discharge Summary ---
Discharge Summary Date of Service May 29, 2017. Discharge Summary Admit date: May 13 2017 DC date May 15, 2017 Admitting attending: Liborio Kingston Admitting diagnosis: R renal mass DC diagnosis: R renal cell cancer. Procedures: R HALN. Complications: None. Brief History: 77 yo female found to have a R renal mass being admitted for right hand assisted lap nephrectomy. See H&P for further details. Hospital Course: Patient admitted after uncomplicated R HALN. See OP note for further details. Over 2 postop days diet and activity were advanced and parenteral pain meds were weaned. Labwork was stable with expected increase in Cr. No complications over admission. By POD#2 patient was ambulating in the halls, comfortable on oral pain meds and ruslan reg diet. Considered stable for DC home. DC instructions - see med list and DC instructions for further detains. Activity limitations and postop visits confirmed. Patient to contact us with any difficulties after DC eg. f/c/n/v.
== END 2017-05-15 14:10 | disposition home or self-care (01) | DRG 657 ==
LOC: C.ACU 05:02 → C.MSW 07:00 → ENRESERV 10:49 → CANBEDREQ 10:50 → ENRESERV 10:53
PROVIDERS: ADMIT Urology; ATTEND Urology
PROC: 0TT00ZZ Resection of Right Kidney, Open Approach (ICD-10-PCS; principal; 2017-05-13 07:15)
PROC: 0TT60ZZ Resection of Right Ureter, Open Approach (ICD-10-PCS; principal; 2017-05-13 07:15)
DX: C64.1 Malignant neoplasm of right kidney, except renal pelvis (principal); K91.2 Postsurgical malabsorption, not elsewhere classified; J98.11 Atelectasis; D62 Acute posthemorrhagic anemia; Z98.84 Bariatric surgery status; Z87.891 Personal history of nicotine dependence

== ENCOUNTER → 2017-07-15 | Outpatient (CLI) | payer OTHER ==
[2017-07-15 10:31] LABS: URINE APPEARANCE CLOUDY (CLEAR); URINE COLOR DK YELLOW; URINE EPITHELIAL CELL AUTO >30 /lpf (0-5); URINE NITRITE NEG (NEG); URINE SPECIFIC GRAVITY 1.026 (1.000-1.030); UROBILINOGEN NEG (NEG)
[2017-07-15 10:35] LABS: BLOOD UREA NITROGEN 27 mg/dl (7-18); CALCIUM 7.2 mg/dl (8.5-10.1); CARBON DIOXIDE 26 mmol/L (21-32); CHLORIDE 115 mmol/L (98-107); CREATININE 0.74 mg/dl (0.60-1.20); GLUCOSE 68 mg/dl (70-99); POTASSIUM 4.1 mmol/L (3.5-5.1); SODIUM 147 mmol/L (136-145)
[2017-07-15 10:36] LABS: PHOSPHORUS 2.8 mg/dl (2.5-4.9)
[2017-07-15 10:42] LABS: MANUAL MICROSCOPIC REQUIRED? NO; REVIEW REQ? YES; URINE BILIRUBIN NEG (NEG)
== END | disposition home or self-care (01) ==
LOC: C.LAB1850 08:51
PROVIDERS: ATTEND Internal Medicine Nephrology
DX: N28.89 Other specified disorders of kidney and ureter (principal)